=== PATIENT | male | born 1945 | race Caucasian/White ===

== ENCOUNTER → 2017-03-01 | Outpatient (CLI) | payer MEDICARE, OTHER | END | disposition home or self-care (01) | LOC: LAB.O 10:30 | PROVIDERS: ATTEND Family Medicine | DX: I10 Essential (primary) hypertension (principal); Z85.46 Personal history of malignant neoplasm of prostate; E78.2 Mixed hyperlipidemia ==

== ENCOUNTER → 2017-06-21 | Outpatient (CLI) | payer MEDICARE, OTHER | END | disposition home or self-care (01) | LOC: GMAB 10:28 | PROVIDERS: ATTEND Family Medicine | DX: D53.9 Nutritional anemia, unspecified (principal); E78.2 Mixed hyperlipidemia; Z85.46 Personal history of malignant neoplasm of prostate ==

== ENCOUNTER → 2017-10-18 | Outpatient (CLI) | payer MEDICARE, OTHER | LOC: GMAB 14:24 | PROVIDERS: ATTEND Family Medicine | DX: C61 Malignant neoplasm of prostate (principal) ==

== ENCOUNTER → 2018-03-05 | Outpatient (CLI) | payer MEDICARE, OTHER | LOC: GMAE 10:54 | PROVIDERS: ATTEND Family Medicine | DX: C61 Malignant neoplasm of prostate (principal); I10 Essential (primary) hypertension ==

== ENCOUNTER 2018-11-27 23:43 | Emergency (ER) | payer MEDICARE, OTHER ==
[2018-11-28 00:01] VITALS: TEMP 97.1
--- NOTE | 2018-11-28 00:08 | ED.PDOC ---
History of Present Illness - General Chief Complaint: Lower Extremity Injury Stated Complaint: Left knee swelling Time Seen by Provider: 11/27/18 23:46 Source: patient Exam Limitations: no limitations - History of Present Illness Initial Comments: the patient is a 73-year-old male presenting to the emergency room secondary to 1+ edema to left lower extremity starting today. No shortness of breath. No pain. He mainly presented because he had an injection in the knee yesterday and he was worried that he was getting an infection. He does not have any increased pain in the knee. There is no erythema. No evidence of any infection. No neurovascular changes. No palpable cords. No posterior calf pain. No posterior upper leg pain. No shortness of breath. Blood pressure is moderately elevated but he does report that it is frequently elevated. No chest pain. His heart rate is irregular and mildly bradycardic but according to him that is normal for him. Timing/Duration: 1-3 hours Severity: mild Improving Factors: nothing Worsening Factors: nothing Associated Symptoms: denies symptoms Review of Systems - Review of Systems Constitutional: States: no symptoms reported EENTM: States: no symptoms reported Respiratory: States: no symptoms reported Cardiology: States: no symptoms reported Gastrointestinal/Abdominal: States: no symptoms reported Genitourinary: States: no symptoms reported Musculoskeletal: States: see HPI Skin: States: no symptoms reported Neurological: States: no symptoms reported Endocrine: States: no symptoms reported All other Systems: No Change from Baseline Past Medical History (General) - Patient Medical History Hx Hypertension: Yes Hx Diabetes: No Hx Cancer: Yes - prostate Surgical History: tonsillectomy - Vaccination History Hx Tetanus, Diphtheria Vaccination: No Hx Influenza Vaccination: No Hx Pneumococcal Vaccination: Yes - Social History Hx Alcohol Use: No - Triage Comment ED Triage Comment: Edema to each side of left knee, per pt. States Left leg normally larger than right due to history of polio Family Medical History - Family History Father Family History: Unknown Physical Exam - Physical Exam General Appearance: Alert, Comfortable, No apparent distress Eye Exam: bilateral normal Ears, Nose, Throat: hearing grossly normal, normal ENT inspection, normal pharynx Neck: full range of motion, supple Respiratory: lungs clear, normal breath sounds, no respiratory distress Cardiovascular/Chest: normal peripheral pulses, irregularly irregular Peripheral Pulses: radial,right: 2+, radial,left: 2+, dorsalis pedis,right: 2+, dorsalis pedis,left: 2+, posterior tibialis,right: 2+, posterior tibialis,left: 2+ Gastrointestinal/Abdominal: non tender, soft Rectal Exam: deferred Back Exam: no CVA tenderness, no vertebral tenderness Extremity: normal range of motion, non-tender, normal inspection, normal capillary refill, pedal edema - the patient has +1 edema to the left lower extremity and trace edema to the right lower extremity, other - 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 This likely has to do with him being up on his feet all day and having recently had a injection in the left knee. I see no evidence of any DVT otherwise at this time and no evidence of any active infection. I do recommend that he sleep with his legs slightly elevated. He can also wear a mild compression sock to help reduce any edema. ER warnings were given for any worsening. Keep routine follow-up with primary care doctor. He is moderately hypertensive here tonight. That is apparently not unusual. He does need to keep a blood pressure diary and take this to his primary care doctor next week. Departure - Departure Clinical Impression: Peripheral edema Disposition: Discharge to Home or Self Care Condition: Fair Departure Forms: ED Discharge - Pt. Copy, Patient Portal Self Enrollment Instructions: Dependent Edema (DC) Diet: low salt diet Activity: increase activity as tolerated Referrals: ABHINAV JACOB MD [Primary Care Provider] - 1-2 Weeks Additional Instructions: the patient is a 73-year-old male presenting to the emergency room secondary to mild edema to the lower extremities, a little more on the left than the right. This likely has to do with him being up on his feet all day and having recently had a injection in the left knee. I see no evidence of any DVT otherwise at this time and no evidence of any active infection. I do recommend that he sleep with his legs slightly elevated. He can also wear a mild compression sock to help reduce any edema. ER warnings were given for any worsening. Keep routine follow-up with primary care doctor. He is moderately hypertensive here tonight. That is apparently not unusual. He does need to keep a blood pressure diary and take this to his primary care doctor next week.
[2018-11-28 00:20] VITALS: BP 181/74; O2SAT 96
== END 2018-11-28 00:12 | disposition home or self-care (01) ==
LOC: ER 23:43
DX: R60.0 Localized edema (principal); I10 Essential (primary) hypertension; Z85.46 Personal history of malignant neoplasm of prostate

== ENCOUNTER → 2019-06-24 | Outpatient (CLI) | payer MEDICARE, OTHER | LOC: GMAE 14:28 | PROVIDERS: ATTEND Family Medicine | DX: C61 Malignant neoplasm of prostate (principal); I10 Essential (primary) hypertension ==

== ENCOUNTER → 2019-12-17 | Outpatient (CLI) | payer MEDICARE, OTHER ==
--- NOTE | 2019-12-17 15:53 | NM ---
EXAM DESCRIPTION: Bone Scan, Whole Body: Nuclear Medicine CLINICAL HISTORY: 74 years Male C61 COMPARISON: CTA neck August 2012 TECHNIQUE: Patient injected with 26.1 mCi of technetium 99M MDP IV. Delayed gamma camera images of the whole body from various planes were obtained 3 hr after injection. FINDINGS: Increased activity in the mid and lower cervical spine on the posterior images which correlates with spondylosis at multiple levels of the mid cervical spine on the prior CT scan and partially healed fracture of the posterior spinous process of T1 on that study. Increased activity in the anterior left mandible. Increased activity in the bilateral shoulders, bilateral wrists predominantly on the radial aspect and relatively symmetric. Also increased activity in the medial plateau of the left knee and increased activity in the medial lateral right patellar joint. Minimal activity in the right tibial plateau. Minimal activity in the right sternoclavicular joint most likely arthrosis. No other abnormal activity in the long bones or flap bones or skull. IMPRESSION: No abnormal activity in the long bones are flat bones or in the skull. Activity in the cervical spine posteriorly is most likely related to prior partially healed fracture T1 posterior spinous process and also diffuse spondylosis C3-C6. Consider correlation with more recent radiographs of the cervical spine or MRI scans. Activity in the anterior left mandible may be related to dental disease. Other abnormal activity is likely related to joint disease. Cannot excluded fracture of the left medial tibial plateau. Correlate with radiographs. Electronically signed by: Aron Shahid MD 12/17/2019 3:52 PM CDT
== END ==
LOC: NM 09:00
PROVIDERS: ATTEND Radiology Radiation Oncology
DX: C61 Malignant neoplasm of prostate (principal); M89.9 Disorder of bone, unspecified; M47.892 Other spondylosis, cervical region

== ENCOUNTER → 2019-12-24 | Outpatient (CLI) | payer MEDICARE, OTHER | DX: R00.1 Bradycardia, unspecified (principal) ==

== ENCOUNTER → 2020-05-05 | Outpatient (CLI) | payer MEDICARE, OTHER | LOC: GMAE 10:30 | PROVIDERS: ATTEND Family Medicine | DX: Z12.5 Encounter for screening for malignant neoplasm of prostate (principal); Z79.899 Other long term (current) drug therapy ==

== ENCOUNTER → 2020-08-10 | Outpatient (CLI) | payer MEDICARE, OTHER | LOC: GMAE 14:31 | PROVIDERS: ATTEND Family Medicine | DX: C61 Malignant neoplasm of prostate (principal); I10 Essential (primary) hypertension ==